=== PATIENT | male | born 1965 | race Caucasian/White ===

== ENCOUNTER 2018-05-15 16:34 | Emergency (ER) | payer SELFPAY ==
[~2018-05-15] VITALS: Ht 175.2 cm; Wt 73.5 kg
[~2018-05-15 16:34] MED LIST: AMOXICILLIN500 M2 PO; Motrin,Rufen800 MG PO
[2018-05-15] MEDS ORDERED: PERCOCET 5-3251 EACH PO (18:45)
[2018-05-15] MEDS ORDERED: PROAIR HFA8.5 GM INH (18:46)
== END 2018-05-15 18:48 | disposition home or self-care (01) ==
LOC: ED 16:34
DX: S22.41XA Multiple fractures of ribs, right side, initial encounter for closed fracture (principal); Z91.010 Allergy to peanuts; Z87.891 Personal history of nicotine dependence; W19.XXXA Unspecified fall, initial encounter; Y93.89 Activity, other specified; Y92.89 Other specified places as the place of occurrence of the external cause; Y99.8 Other external cause status

== ENCOUNTER → 2022-06-04 | Outpatient (CLI) | payer SELFPAY ==
[~2022-06-04] MED LIST changes: +PERCOCET 5-3251 EACH PO; +PROAIR HFA8.5 GM INH
== END | disposition home or self-care (01) ==
LOC: RESCLI 11:07
PROVIDERS: ATTEND Internal Medicine
DX: I63.9 Cerebral infarction, unspecified (principal); I10 Essential (primary) hypertension; Z98.890 Other specified postprocedural states; F17.200 Nicotine dependence, unspecified, uncomplicated; Z72.89 Other problems related to lifestyle; Z91.018 Allergy to other foods; Z88.8 Allergy status to other drugs, medicaments and biological substances; Z79.899 Other long term (current) drug therapy

== ENCOUNTER → 2022-06-08 | Outpatient (CLI) | payer SELFPAY ==
[2022-06-08 16:10] LABS: BASO # 0.1 10*3/uL (0.0-0.1); BASO % 0.7 % (0.0-1.0); EOS # 0.2 10*3/uL (0.0-0.4); EOS % 2.3 % (1.0-4.0); HEMATOCRIT 39.9 % (42.0-52.0); LYMPH # 2.3 10*3/uL (1.3-4.4); LYMPH % 31.3 % (27.0-41.0); MEAN CELL VOLUME 91.7 fl (80.0-94.0); MEAN CORPUSCULAR HGB 29.7 pg (27.0-31.0); MEAN CORPUSCULAR HGB CONC 32.3 g/dl (33.0-37.0); MEAN PLATELET VOLUME 9.1 fl (9.6-12.3); MONO # 0.6 10*3/uL (0.1-1.0); MONO % 7.6 % (3.0-9.0); NEUT # 4.3 10*3/uL (2.3-7.9); NEUT % 57.7 % (47.0-73.0); PLATELET COUNT AUTOMATED 379 10*3/uL (130-400); RED BLOOD COUNT 4.35 10*6/uL (4.50-5.90); RED CELL DISTRI WIDTH 13.4 % (0-14.5); WHITE BLOOD COUNT 7.4 10*3/uL (4.8-10.8)
== END | disposition home or self-care (01) ==
LOC: LAB 15:21
PROVIDERS: ATTEND Student in an Organized Health Care Education/Training Program
DX: I10 Essential (primary) hypertension (principal)

== ENCOUNTER 2022-06-26 12:08 | Emergency (ER) | payer MEDICAID ==
[~2022-06-26] VITALS: Ht 175.2 cm; Wt 68.0 kg
[2022-06-26 13:27] LABS: BILIRUBIN Negative (Negative); BLOOD Trace-Lysed (Negative); CLARITY Clear (Clear); COLOR Yellow (Yellow); GLUCOSE Negative (Negative); KETONE Negative (Negative); LEUKO ESTERASE Negative (Negative); NITRITE Negative (Negative); PH 6.5 (4.5-8.0); UROBILINOGEN 0.2 E.U./dl (0.0-1.0)
[2022-06-26 13:38] LABS: MUCOUS TRACE; WBC 0-2 wbc/hpf (0-5)
[2022-06-26 14:04] LABS: BASO # 0.1 10*3/uL (0.0-0.1); BASO % 0.9 % (0.0-1.0); EOS # 0.2 10*3/uL (0.0-0.4); EOS % 2.7 % (1.0-4.0); HEMATOCRIT 38.7 % (42.0-52.0); LYMPH # 1.6 10*3/uL (1.3-4.4); LYMPH % 28.8 % (27.0-41.0); MEAN CORPUSCULAR HGB 29.5 pg (27.0-31.0); MEAN CORPUSCULAR HGB CONC 32.8 g/dl (33.0-37.0); MEAN PLATELET VOLUME 8.9 fl (9.6-12.3); MONO # 0.5 10*3/uL (0.1-1.0); MONO % 8.1 % (3.0-9.0); NEUT # 3.3 10*3/uL (2.3-7.9); NEUT % 59.1 % (47.0-73.0); PLATELET COUNT AUTOMATED 289 10*3/uL (130-400); RED CELL DISTRI WIDTH 12.9 % (0-14.5); WHITE BLOOD COUNT 5.6 10*3/uL (4.8-10.8)
[2022-06-26 14:14] LABS: ACT PARTIAL THROMBO TIME 37.3 SECONDS (20.0-32.1); INTERNATIONAL NORM RATIO 0.9 (2.0-3.5)
[2022-06-26 14:25] LABS: ALKALINE PHOSPHATASE 89 U/L (46-116); BUN 12 mg/dl (9-23); CHLORIDE 106 mmol/L (98-107); CREATININE 0.75 mg/dL (0.70-1.30); LIPASE 32 U/L (12-53); POTASSIUM 4.1 mmol/L (3.4-5.1); SGPT/ALT 10 U/L (10-49); SODIUM 138 mmol/L (136-145)
== END 2022-06-26 16:13 | disposition home or self-care (01) ==
LOC: ED 12:08
PROVIDERS: Emergency Medicine
DX: G43.909 Migraine, unspecified, not intractable, without status migrainosus (principal); F17.200 Nicotine dependence, unspecified, uncomplicated; Z91.010 Allergy to peanuts

== ENCOUNTER → 2022-06-26 | Outpatient (CLI) | payer MEDICAID | END | disposition home or self-care (01) | LOC: RESCLI 11:08 | PROVIDERS: ATTEND Internal Medicine | DX: G43.909 Migraine, unspecified, not intractable, without status migrainosus (principal); I10 Essential (primary) hypertension; Z79.899 Other long term (current) drug therapy; Z88.8 Allergy status to other drugs, medicaments and biological substances ==

== ENCOUNTER 2022-07-07 14:43 | Emergency (ER) | payer MEDICAID ==
[~2022-07-07] VITALS: Ht 175.2 cm; Wt 70.3 kg
[2022-07-07] MEDS ORDERED: LOSARTAN POTAS100 M1 PO (18:33)
[2022-07-07] MEDS ORDERED: NORVASC10 MG PO (18:33)
== END 2022-07-07 23:41 | disposition home or self-care (01) ==
LOC: ED 14:43
DX: K52.29 Other allergic and dietetic gastroenteritis and colitis (principal); Z20.822 Contact with and (suspected) exposure to COVID-19; Z91.010 Allergy to peanuts; Z79.899 Other long term (current) drug therapy; F17.200 Nicotine dependence, unspecified, uncomplicated

== ENCOUNTER 2022-12-14 11:59 | Emergency (ER) | payer OTHER ==
[~2022-12-14] VITALS: Wt 72.6 kg
[~2022-12-14 11:59] MED LIST changes: +LOSARTAN POTAS100 M1 PO; +NORVASC10 MG PO
[2022-12-14] MEDS ORDERED: HYDROCODONE-AC1 EAC1 PO (15:01)
== END 2022-12-14 15:08 | disposition home or self-care (01) ==
LOC: ED 11:59
DX: M79.605 Pain in left leg (principal); Z91.010 Allergy to peanuts; Z98.890 Other specified postprocedural states

== ENCOUNTER 2023-01-27 03:38 | Emergency (ER) | payer OTHER ==
[~2023-01-27] VITALS: Ht 175.2 cm; Wt 97.5 kg
[~2023-01-27 03:38] MED LIST changes: +HYDROCODONE-AC1 EAC1 PO
== END 2023-01-27 05:01 | disposition home or self-care (01) ==
LOC: ED 03:38
DX: S51.811A Laceration without foreign body of right forearm, initial encounter (principal); Z91.010 Allergy to peanuts; Z98.890 Other specified postprocedural states; Y08.89XA Assault by other specified means, initial encounter; Y93.89 Activity, other specified; Y92.009 Unspecified place in unspecified non-institutional (private) residence as the place of occurrence of the external cause; Y99.8 Other external cause status

== ENCOUNTER 2023-11-02 10:38 | Emergency (ER) | payer OTHER ==
[~2023-11-02] VITALS: Ht 175.2 cm; Wt 69.9 kg
[2023-11-02] MEDS ORDERED: NORTRIPTYLINE H25 M1 PO (10:49)
[2023-11-02] MEDS ORDERED: MAGNESIUM OXID500 MG PO (10:49)
[2023-11-02] MEDS ORDERED: TIZANIDINE HCL4 MG PO (10:49)
[2023-11-02] MEDS ORDERED: OXYBUTYNIN5 MG PO (10:49)
[2023-11-02] MEDS ORDERED: INDOMETHACIN50 MG PO (10:50)
[2023-11-02] MEDS ORDERED: Acetaminophen/Oxycodone 5 MG/325 MG TABLET PO ONE (11:00)
[2023-11-02] MEDS ORDERED: predniSONE 20 MG TAB PO ONE (11:00)
[2023-11-02] MEDS ORDERED: TRIAMCINOLONE430 GM TD (11:36)
[2023-11-02] MEDS ORDERED: PREDNISONE20 M1 PO (11:36)
[2023-11-02] MEDS ORDERED: TRAMADOL HCL50 MG PO (11:36)
== END 2023-11-02 11:41 | disposition home or self-care (01) ==
LOC: ED 10:38
DX: S20.212A Contusion of left front wall of thorax, initial encounter (principal); L25.9 Unspecified contact dermatitis, unspecified cause; R21 Rash and other nonspecific skin eruption; I10 Essential (primary) hypertension; E78.5 Hyperlipidemia, unspecified; Z91.010 Allergy to peanuts; Z98.890 Other specified postprocedural states; W19.XXXA Unspecified fall, initial encounter; Y93.89 Activity, other specified; Y92.89 Other specified places as the place of occurrence of the external cause; Y99.8 Other external cause status

== ENCOUNTER 2023-12-17 19:09 | Emergency (ER) | payer OTHER ==
[~2023-12-17] VITALS: Ht 175.2 cm; Wt 68.0 kg
[~2023-12-17 19:09] MED LIST changes: +INDOMETHACIN50 MG PO; +MAGNESIUM OXID500 MG PO; +NORTRIPTYLINE H25 M1 PO; +OXYBUTYNIN5 MG PO; +PREDNISONE20 M1 PO; +TIZANIDINE HCL4 MG PO; +TRAMADOL HCL50 MG PO; +TRIAMCINOLONE430 GM TD
[2023-12-17 21:55] LABS: BASO # 0.1 10*3/uL (0.0-0.1); BASO % 0.8 % (0.0-1.0); EOS # 0.1 10*3/uL (0.0-0.4); EOS % 1.2 % (1.0-4.0); LYMPH # 2.3 10*3/uL (1.3-4.4); LYMPH % 30.7 % (27.0-41.0); MEAN CELL VOLUME 91.3 fl (80.0-94.0); MEAN CORPUSCULAR HGB 29.5 pg (27.0-31.0); MEAN CORPUSCULAR HGB CONC 32.3 g/dl (33.0-37.0); MEAN PLATELET VOLUME 8.7 fl (9.6-12.3); MONO # 0.5 10*3/uL (0.1-1.0); MONO % 6.9 % (3.0-9.0); NEUT # 4.4 10*3/uL (2.3-7.9); NEUT % 59.3 % (47.0-73.0); PLATELET COUNT AUTOMATED 284 10*3/uL (130-400); RED BLOOD COUNT 4.71 10*6/uL (4.50-5.90); RED CELL DISTRI WIDTH 13.5 % (0-14.5); WHITE BLOOD COUNT 7.4 10*3/uL (4.8-10.8)
[2023-12-17 22:08] LABS: ACT PARTIAL THROMBO TIME 33.6 SECONDS (20.0-32.1)
[2023-12-17 22:10] LABS: ALKALINE PHOSPHATASE 95 U/L (46-116); BUN 9 mg/dl (9-23); CHLORIDE 105 mmol/L (98-107); SGPT/ALT 16 U/L (5-49); TOTAL PROTEIN 6.7 gm/dL (6.0-8.0)
== END 2023-12-17 23:24 | disposition home or self-care (01) ==
LOC: ED 19:09
PROVIDERS: Nurse Practitioner
DX: M25.512 Pain in left shoulder (principal); F17.200 Nicotine dependence, unspecified, uncomplicated; Z86.73 Personal history of transient ischemic attack (TIA), and cerebral infarction without residual deficits; Z91.010 Allergy to peanuts; Z79.899 Other long term (current) drug therapy

== ENCOUNTER 2024-02-14 17:03 | Emergency (ER) | payer OTHER ==
[~2024-02-14] VITALS: Ht 175.2 cm; Wt 68.0 kg
[2024-02-14] MEDS ORDERED: PREDNISONE20 M1 PO (17:27)
[2024-02-14] MEDS ORDERED: methylPREDNISolone sod succ 125 MG VIAL IM ONE (17:30)
== END 2024-02-14 17:35 | disposition home or self-care (01) ==
LOC: ED 17:03
DX: L23.7 Allergic contact dermatitis due to plants, except food (principal); Z91.010 Allergy to peanuts; Z98.890 Other specified postprocedural states

== ENCOUNTER 2024-06-13 18:22 | Emergency (ER) | payer OTHER ==
[~2024-06-13] VITALS: Ht 182.8 cm; Wt 77.1 kg
[2024-06-13] MEDS ORDERED: LIDOCAINE HCL/EPINEPHRINE 50 ML VIAL ONE (18:34)
[2024-06-13] MEDS ORDERED: SODIUM CHLORIDE 0.9% 2,000 ML IV ONE (18:39)
[2024-06-13] MEDS ORDERED: SODIUM CHLORIDE 0.9% 1,000 ML IV ONE ×2 (18:45)
[2024-06-13 19:19] LABS: BASO # 0.1 10*3/uL (0.0-0.1); BASO % 0.8 % (0.0-1.0); EOS # 0.1 10*3/uL (0.0-0.4); EOS % 1.2 % (1.0-4.0); HEMATOCRIT 42.9 % (42.0-52.0); MEAN CELL VOLUME 91.1 fl (80.0-94.0); MEAN CORPUSCULAR HGB 30.1 pg (27.0-31.0); MEAN CORPUSCULAR HGB CONC 33.1 g/dl (33.0-37.0); MEAN PLATELET VOLUME 9.2 fl (9.6-12.3); MONO # 0.5 10*3/uL (0.1-1.0); MONO % 7.7 % (3.0-9.0); NEUT # 3.2 10*3/uL (2.3-7.9); NEUT % 53.8 % (47.0-73.0); PLATELET COUNT AUTOMATED 238 10*3/uL (130-400); RED BLOOD COUNT 4.71 10*6/uL (4.50-5.90); RED CELL DISTRI WIDTH 13.1 % (0-14.5)
[2024-06-13 19:30] LABS: ACT PARTIAL THROMBO TIME 29.6 SECONDS (20.0-32.1)
[2024-06-13 19:40] LABS: ALKALINE PHOSPHATASE 72 U/L (46-116); BUN 7 mg/dl (9-23); CHLORIDE 108 mmol/L (98-107); ETHYL ALCOHOL 229.1 mg/dl (<3); POTASSIUM 3.5 mmol/L (3.4-5.1); SGPT/ALT 12 U/L (5-49); TOTAL PROTEIN 6.3 gm/dL (6.0-8.0)
[2024-06-13] MEDS ORDERED: Tdap Vaccine 0.5 ML SYR (Adult Vaccine) IM ONE (20:05)
[2024-06-13] MEDS ORDERED: ceFAZolin sodium 2 GM in SYRINGE INFUSION 20 ML IV ONE (20:25)
== END 2024-06-13 21:46 | disposition short-term general hospital (02) ==
LOC: ED 18:22
PROVIDERS: Emergency Medicine
DX: S01.01XA Laceration without foreign body of scalp, initial encounter (principal); R10.2 Pelvic and perineal pain; R51.9 Headache, unspecified; F17.200 Nicotine dependence, unspecified, uncomplicated; Z91.010 Allergy to peanuts; Z98.890 Other specified postprocedural states; W10.9XXA Fall (on) (from) unspecified stairs and steps, initial encounter; Y93.89 Activity, other specified; Y92.89 Other specified places as the place of occurrence of the external cause; Y99.8 Other external cause status